=== PATIENT | female | born 1995 | race Caucasian/White ===

== ENCOUNTER 2016-09-07 19:25 | Emergency (ER) | payer OTHER ==
[~2016-09-07] VITALS: Ht 165.1 cm; Wt 53.0 kg
[~2016-09-07 19:25] MED LIST: ADVIL,NUPRIN,M200 MG PO; JUBLIA4 ML TP; MOTRIN600 MG PO; NAPROXEN500 MG PO; NORCO 5/3251 TABLET PO; ZOFRAN ODT4 MG PO
[2016-09-07 20:06] LABS: HEMATOCRIT 38.8 % (36.0-46.0); MCH 30.6 PG (29.0-34.0); MCHC 34.3 G/DL (30.0-36.0); MCV 89.2 FL (83-99); MEAN PLAT.VOLUME 9.6 uM^3 (9.5-12.4); PLATELET COUNT 212 K/uL (156-360); RBC DIS.WIDTH-CV 12.9 % (11.8-14.6); RBC DIS.WIDTH-SD 42.7 % (39-53); RED BLOOD COUNT 4.35 M/uL (3.80-5.20); WHITE BLOOD COUNT 8.1 K/uL (4.1-10.2)
[2016-09-07 20:15] LABS: CHLORIDE 104 mEq/L (99-109); POTASSIUM 3.4 mEq/L (3.7-5.4); SODIUM 140 mEq/L (136-147)
[2016-09-07 20:17] LABS: GLUCOSE 133 mg/dL (70-99)
[2016-09-07 20:19] LABS: ANION GAP 10 MEQ/L (2-14)
[2016-09-07 20:21] LABS: GFR ESTIMATE (CALCULATED) > 59 mL/min/
[2016-09-07 20:22] LABS: UREA NITROGEN (BUN) 13 mg/dL (9-23)
[2016-09-07 20:31] LABS: QUANTITATIVE HCG < 4.0 MIU/ML
[2016-09-07 20:56] VITALS: BP 145/88
== END 2016-09-07 21:05 | disposition left against medical advice (07) ==
LOC: EME → EDBD 19:25 → EME 21:05
PROVIDERS: Emergency Medicine
DX: F41.9 Anxiety disorder, unspecified (principal); R41.82 Altered mental status, unspecified; R55 Syncope and collapse; W19.XXXA Unspecified fall, initial encounter; F11.99 Opioid use, unspecified with unspecified opioid-induced disorder; F17.200 Nicotine dependence, unspecified, uncomplicated
CPT/HCPCS: 80048; 84702; 85027; 99281; 99284

== ENCOUNTER 2016-10-09 14:10 | Emergency (ER) | payer OTHER ==
[~2016-10-09] VITALS: Ht 170.2 cm; Wt 54.2 kg
[2016-10-09 14:56] VITALS: BP 138/82
== END 2016-10-09 15:05 | disposition left against medical advice (07) ==
LOC: EME 14:10
DX: R55 Syncope and collapse (principal); F11.20 Opioid dependence, uncomplicated; F41.9 Anxiety disorder, unspecified; Z91.040 Latex allergy status; Z88.6 Allergy status to analgesic agent; F17.200 Nicotine dependence, unspecified, uncomplicated
CPT/HCPCS: 99281; 99283

== ENCOUNTER 2017-01-19 10:06 | Emergency (ER) | payer OTHER ==
[~2017-01-19] VITALS: Ht 170.2 cm; Wt 51.2 kg
[2017-01-19] MEDS ORDERED: PEN-VEE K,VEET500 MG PO (11:41)
[2017-01-19] MEDS ORDERED: ULTRAM50 MG PO (11:42)
[2017-01-19 12:25] VITALS: BP 143/90
== END 2017-01-19 12:25 | disposition home or self-care (01) ==
LOC: EME 10:06
PROC: 3E0T3BZ Introduction of Anesthetic Agent into Peripheral Nerves and Plexi, Percutaneous Approach (ICD-10-PCS; principal; 2017-01-19)
DX: K04.7 Periapical abscess without sinus (principal); Z91.040 Latex allergy status
CPT/HCPCS: 99281; 99283

== ENCOUNTER 2017-09-29 11:11 | Emergency (ER) | payer OTHER ==
[~2017-09-29] VITALS: Ht 175.3 cm; Wt 52.4 kg
[~2017-09-29 11:11] MED LIST changes: +PEN-VEE K,VEET500 MG PO; +ULTRAM50 MG PO
[2017-09-29] MEDS ORDERED: PREDNISONE5 M1 PO (13:14)
[2017-09-29 13:45] VITALS: BP 124/83
== END 2017-09-29 13:45 | disposition home or self-care (01) ==
LOC: EME 11:11
DX: L23.7 Allergic contact dermatitis due to plants, except food (principal); F17.200 Nicotine dependence, unspecified, uncomplicated; Z91.040 Latex allergy status; Z88.8 Allergy status to other drugs, medicaments and biological substances
CPT/HCPCS: 99281; 99283; J1100